=== PATIENT | male | born 2000 | race Hispanic/Latino ===

== ENCOUNTER 2024-03-03 00:49 | Emergency (ER) | payer OTHER ==
[2024-03-03] MEDS ORDERED: predniSONE 20 MG TAB ONE (01:13)
[2024-03-03] MEDS ORDERED: KETOROLAC 30 MG/ML INJ ONE (01:13)
[2024-03-03] MEDS ORDERED: methocarbamoL 750 MG TAB ONE (01:13)
[2024-03-03] MEDS ORDERED: DIAZEPAM 5 MG TABLET ONE (01:14)
[2024-03-03] MEDS ORDERED: HYDROCODONE/APAP 10/325 TAB ONE (01:14)
--- NOTE | 2024-03-03 02:16 | ER ---
Nurse's Notes [facility] Name: Orlin Hudson Age: 23 yrs Sex: Male : 2000 Arrival Date: 03/03/2024 Time: 00:49 Bed 20 Private MD: Diagnosis: Other sprain of right shoulder joint Presentation: 03/03 00:51 Chief complaint: EMS states: Pt seen independently ambulatory to the ED stretcher with kd3 assistance from EMS. He has a right dislocated shoulder. PT says he was wiping up the tables and irrigated and old injury but no obvious deformity is noted to the right shoulder. Coronavirus screen: Vaccine status: unknown. Ebola Screen: No symptoms or risks identified at this time. Initial Sepsis Screen: Does the patient meet any 2 criteria? No. Patient's initial sepsis screen is negative. Does the patient have a suspected source of infection? No. Patient's initial sepsis screen is negative. Risk Assessment: Do you want to hurt yourself or someone else? Patient reports no desire to harm self or others. Onset of symptoms was March 03, 2024. 00:51 Method Of Arrival: EMS: [facility] kd3 00:51 Acuity: ISAIAH 4 kd3 Triage Assessment: 00:55 General: Appears uncomfortable, Behavior is calm, cooperative. Pain: Complains of pain kd3 in anterior aspect of right shoulder and right axilla. Neuro: Level of Consciousness is awake, alert, obeys commands, Oriented to person, place, time, situation. Historical: - Allergies: 00:55 No Known Allergies; kd3 - Immunization history:: Adult Immunizations up to date. - Infectious Disease History:: Denies. - Social history:: Smoking status: unknown. - Family history:: not pertinent. Screenin:27 [facility] ED Fall Risk Assessment (Adult) History of falling in the last 3 months, kd3 including since admission No falls in past 3 months (0 pts) Confusion or Disorientation No (0 pts) Intoxicated or Sedated No (0 pts) Impaired Gait No (0 pts) Mobility Assist Device Used No (0 pt) Altered Elimination No (0 pt) Score/Fall Risk Level 0 - 2 = Low Risk Maintained a safe environment. Abuse screen: Denies threats or abuse. Denies injuries from another. Nutritional screening: No deficits noted. Tuberculosis screening: No symptoms or risk factors identified. Assessment: 01:27 General: Appears uncomfortable, Behavior is calm, cooperative. Pain: Complains of pain kd3 in anterior aspect of right shoulder. Neuro: Level of Consciousness is awake, alert, obeys commands, Oriented to person, place, time, situation. Vital Signs: 00:59 Pulse 77; Resp 16; Temp 98.2(O); Pulse Ox 100% ; Weight 64.86 kg; Height 5 ft. 9 in. ; kd3 Pain 7/10; 01:02 BP 146 / 86; kd3 01:28 BP 145 / 98; Pulse 56; Resp 16; Pulse Ox 96% on R/A; kd3 01:50 BP 135 / 65; Pulse 62; Resp 16; Pulse Ox 94% on R/A; kd3 01:56 BP 145 / 78; Pulse 53; Resp 16; Pulse Ox 96% on R/A; kd3 02:09 BP 125 / 71; Pulse 50; Resp 17; Pulse Ox 98% on R/A; kd3 00:59 Body Mass Index 21.12 (64.86 kg, 175.26 cm) kd3 00:59 Pain Scale: Adult kd3 [place] Coma Score: 02:18 Eye Response: spontaneous(4). Motor Response: obeys commands(6). Verbal Response: sp4 oriented(5). Total: 15. ED Course: 00:50 Patient arrived in ED. sb4 00:55 Triage completed. kd3 00:55 Cresencio Eng MD is Attending Physician. sp4 00:55 Arm band placed on left wrist. kd3 01:03 Nga Munoz, MENDOZA is Primary Nurse. kd3 01:12 Shoulder Right (2 View) XRAY In Process Unspecified. EDMS 01:27 No provider procedures requiring assistance completed. Patient did not have IV access kd3 during this emergency room visit. 01:28 Patient has correct armband on for positive identification. Provided Education on: pain kd3 management . 02:16 Willie Dickens MD is Referral Physician. sp4 Administered Medications: 01:08 Not Given (Physician Discretion): ondansetron 4 mg IVP once; over 2 minutes sp4 01:08 Not Given (Physician Discretion): ns 0.9% 1000 ml IV at 125 ml/hr continuous sp4 01:09 Not Given (Physician Discretion): morphineor iv 4 mg IVP once over 4 mins sp4 01:24 Drug: predniSONE PO 60 mg PO once Route: PO; kd3 01:24 Drug: Delmont PO 10 mg-325 mg 1 tabs PO once Route: PO; kd3 01:24 Drug: Diazepam PO 5 mg PO once Route: PO; kd3 01:24 Drug: Methocarbamol PO 750 mg PO once Route: PO; kd3 01:24 Drug: Ketorolac IM 60 mg IM once Route: IM; Site: right gluteus; kd3 Medication: 01:27 VIS not applicable for this client. kd3 Outcome: :27 Condition: stable kd3 02:16 Discharge ordered by . sp4 02:23 Discharged to Law Enforcement kd3 02:23 Condition: stable 02:23 Discharge instructions given to patient, Instructed on discharge instructions, follow up and referral plans. Demonstrated understanding of instructions, follow-up care, medications, Prescriptions given X :23 Patient left the ED. kd3 Signatures: Dispatcher [employer] Nga Call RN RN kd3 Zara Stephens, PA-C PA-C sb4 Cresencio Eng MD MD sp4
--- NOTE | 2024-03-03 02:16 | EDPHYS ---
Physician Documentation [facility] Name: Orlin Hudson Age: 23 yrs Sex: Male : 2000 Arrival Date: 03/03/2024 Time: 00:49 Bed 20 Private MD: ED Physician Cresencio Eng HPI: 03/03 02:15 This 23 yrs old Black Male presents to ER via EMS with complaints of Shoulder Pain. sp4 02:18 23-year-old inmate of [facility] presents with EMS for complaint of acute onset sp4 moderate right shoulder pain. Patient states he was cleaning and then heard a pop in his shoulder and then reported that shoulder was out of place. By exam shoulder is not out of place. No deformity on arrival. Historical: - Allergies: 00:55 No Known Allergies; kd3 - Immunization history:: Adult Immunizations up to date. - Infectious Disease History:: Denies. - Social history:: Smoking status: unknown. - Family history:: not pertinent. ROS: 02:18 Constitutional: Negative for fever, chills, and weight loss, positive for right sp4 shoulder pain 02:18 All other systems are negative, Exam: 02:18 Constitutional: This is a well developed, well nourished patient who is awake, alert, sp4 and in no acute distress. Head/Face: Normocephalic, atraumatic. Eyes: Pupils equal round and reactive to light, extra-ocular motions intact. Lids and lashes normal. Conjunctiva and sclera are not injected. Cornea within normal limits. Periorbital areas with no swelling, redness, or edema. ENT: Nares patent. No nasal discharge, no septal abnormalities noted. Tympanic membranes are normal and external auditory canals are clear. Oropharynx with no redness, swelling, or masses, exudates, or evidence of obstruction, uvula midline. Mucous membranes moist. Neck: Trachea midline, no thyromegaly or masses palpated, and no cervical lymphadenopathy. Supple, full range of motion without nuchal rigidity, or vertebral point tenderness. Chest/axilla: Normal chest wall appearance and motion. Nontender with no deformity. No lesions are appreciated. Cardiovascular: Regular rate and rhythm with a normal S1 and S2. No gallops, murmurs, or rubs. Normal PMI, no JVD. No pulse deficits. Respiratory: Lungs have equal breath sounds bilaterally, clear to auscultation and percussion. No rales, rhonchi or wheezes noted. No increased work of breathing, no retractions or nasal flaring. Abdomen/GI: Soft, with normal bowel sounds. No distension or tympany. No guarding or rebound. No evidence of tenderness throughout. Back: No spinal tenderness. No costovertebral tenderness. Skin: Warm, dry with normal turgor. Normal color with no rashes, no lesions, and no evidence of cellulitis. MS/ Extremity: Pulses equal, no cyanosis. Neurovascular intact. Full, normal range of motion. Neuro: Awake and alert, GCS 15, oriented to person, place, time, and situation. Cranial nerves II-XII grossly intact. Motor strength 5/5 in all extremities. Sensory grossly intact. Psych: Awake, alert, with orientation to person, place and time. Behavior, mood, and affect are within normal limits Vital Signs: 00:59 Pulse 77; Resp 16; Temp 98.2(O); Pulse Ox 100% ; Weight 64.86 kg; Height 5 ft. 9 in. ; kd3 Pain 7/10; 01:02 BP 146 / 86; kd3 01:28 BP 145 / 98; Pulse 56; Resp 16; Pulse Ox 96% on R/A; kd3 01:50 BP 135 / 65; Pulse 62; Resp 16; Pulse Ox 94% on R/A; kd3 01:56 BP 145 / 78; Pulse 53; Resp 16; Pulse Ox 96% on R/A; kd3 02:09 BP 125 / 71; Pulse 50; Resp 17; Pulse Ox 98% on R/A; kd3 00:59 Body Mass Index 21.12 (64.86 kg, 175.26 cm) kd3 00:59 Pain Scale: Adult kd3 Shelly Coma Score: 02:18 Eye Response: spontaneous(4). Motor Response: obeys commands(6). Verbal Response: sp4 oriented(5). Total: 15. MDM: 00:56 Patient medically screened. sp4 02:15 ED course: EXAM DESCRIPTION: Shoulder Right 2 View RadLex: XR SHOULDER 2 OR MORE VIEWS sp4 RIGHT CLINICAL HISTORY: 23 years Male, DEFORMITY COMPARISON: None. FINDINGS: 2 views of the right shoulder. No acute fracture or dislocation. Soft tissues are unremarkable. IMPRESSION: No acute radiographic abnormality. . 02:18 Differential diagnosis: Anterior dislocation with fracture, Anterior dislocation sp4 without fracture, Posterior dislocation with fracture, Posterior dislocation without fracture. Data reviewed: vital signs, nurses notes, EMS record, radiologic studies, plain films. ED course: My exam shoulder is not dislocated, x-ray is normal. Patient stable for discharge back to [place] presented with a right shoulder sling for 7 days also ibuprofen as needed pain. Advised to follow-up with orthopedist here at [facility]. . 03/03 00:50 Order name: Shoulder Right (2 View) XRAY sb4 03/03 01:09 Order name: Sling; Complete Time: 01:24 sp4 Administered Medications: 01:08 Not Given (Physician Discretion): ondansetron 4 mg IVP once; over 2 minutes sp4 01:08 Not Given (Physician Discretion): ns 0.9% 1000 ml IV at 125 ml/hr continuous sp4 01:09 Not Given (Physician Discretion): morphineor iv 4 mg IVP once over 4 mins sp4 01:24 Drug: predniSONE PO 60 mg PO once Route: PO; kd3 01:24 Drug: Perkins PO 10 mg-325 mg 1 tabs PO once Route: PO; kd3 01:24 Drug: Diazepam PO 5 mg PO once Route: PO; kd3 01:24 Drug: Methocarbamol PO 750 mg PO once Route: PO; kd3 01:24 Drug: Ketorolac IM 60 mg IM once Route: IM; Site: right gluteus; kd3 Disposition Summary: 03/03/24 02:16 Discharge Ordered Problem: new sp4 Symptoms: have improved sp4 Condition: Stable sp4 Diagnosis - Other sprain of right shoulder joint sp4 Followup: sp4 - With: Willie Dickens MD - When: 7 - 10 days - Reason: Recheck today's complaints Discharge Instructions: - Discharge Summary Sheet sp4 - Shoulder Sprain sp4 Forms: - Patient Portal Instructions sp4 Prescriptions: - Ibuprofen 800 mg Oral Tablet - take 1 tablet ORAL route every 8 hours As needed take with food; 30 tablet; sp4 Refills: 0, Product Selection Permitted Signatures: Dispatcher [facility] Nga Call RN RN kd3 Cresencio Eng MD MD sp4 Corrections: (The following items were deleted from the chart) 01:08 00:56 Conscious Sedation ordered. sp4 sp4 01:09 00:56 IV Saline Lock ordered. sp4 sp4
[2024-03-03 02:48] VITALS: BP 125/71; TEMP 98.2; O2SAT 98
--- NOTE | 2024-03-03 17:04 | RAD REPORT ---
EXAM DESCRIPTION: RAD - Shoulder Right 2 View - 03/03/2024 1:11 am RadLex: XR SHOULDER 2 OR MORE VIEWS RIGHT CLINICAL HISTORY: 23 years Male, DEFORMITY COMPARISON: None. FINDINGS: 2 views of the right shoulder. No acute fracture or dislocation. Soft tissues are unremark able. IMPRESSION: No acute radiographic abnormality. Electronically signed by: Simi Chirinos MD 03/03/2024 01:22 AM CDT RP Due to temporary technical issues with the PACS/Fluency reporting system, reports are being signed by the in house radiologists without review as a courtesy to insure prompt reporting. The interpreting radiologist is fully responsible for the content of the report.
== END 2024-03-03 02:23 | disposition home or self-care (01) ==
LOC: ER 00:49
DX: S43.491A Other sprain of right shoulder joint, initial encounter (principal)
CPT/HCPCS: 73030; 96372; 99284; J7512